=== PATIENT | female | born 1980 | race American Indian/Alaskan Native ===

== ENCOUNTER 2018-01-02 15:49 | Emergency (ER) | payer MEDICAID ==
[~2018-01-02] VITALS: Ht 162.6 cm; Wt 76.0 kg
[~2018-01-02 15:49] MED LIST: HYDR-569 PO; ONDA4TAB6 PO
[2018-01-02] MEDS ORDERED: GUAI10SY2 PO (16:25)
[2018-01-02] MEDS ORDERED: TAM75C PO (16:25)
[2018-01-02 16:39] VITALS: BP 127/97
== END 2018-01-02 16:40 | disposition home or self-care (01) ==
LOC: ER 15:49
DX: B34.9 Viral infection, unspecified (principal); Z56.0 Unemployment, unspecified; Z88.2 Allergy status to sulfonamides; Z79.899 Other long term (current) drug therapy
CPT/HCPCS: 99283

== ENCOUNTER 2018-01-07 23:54 | Emergency (ER) | payer MEDICAID ==
[~2018-01-07] VITALS: Ht 160 cm; Wt 77.0 kg
[~2018-01-07 23:54] MED LIST changes: +GUAI10SY2 PO; +TAM75C PO
[2018-01-08] MEDS ORDERED: GUAI10SY2 PO (00:19)
[2018-01-08 00:31] VITALS: BP 143/69
== END 2018-01-08 00:31 | disposition home or self-care (01) ==
LOC: ER 23:54
DX: J06.9 Acute upper respiratory infection, unspecified (principal); R05 Cough; Z90.710 Acquired absence of both cervix and uterus; Z88.2 Allergy status to sulfonamides; Z56.0 Unemployment, unspecified
CPT/HCPCS: 93005; 99283

== ENCOUNTER 2025-01-24 12:41 | Outpatient (CLI) | payer MEDICARE, MEDICAID ==
[~2025-01-24 12:41] MED LIST changes: -GUAI10SY2 PO; +HYDR-4383 PO; -HYDR-569 PO; -TAM75C PO
== END 2025-01-24 23:59 | disposition home or self-care (01) ==
LOC: MRI 12:41
PROVIDERS: ATTEND Nurse Practitioner Family
DX: M51.17 Intervertebral disc disorders with radiculopathy, lumbosacral region (principal); Z78.0 Asymptomatic menopausal state
CPT/HCPCS: 72148